=== PATIENT | female | born 1990 | race African-American/Black ===

== ENCOUNTER 2017-02-01 19:40 | Outpatient (CLI) | payer BC ==
[2017-02-01] MEDS ORDERED: LACTATED RINGERS 1,000 ML IV ONE (20:04)
[2017-02-01 20:31] LABS: Bilirubin,Urine NEG (Negative); Blood,Urine NEG (Negative); Ketones,Urine NEG (Negative); Leukocyte Esterase,Urine NEG (Negative); Nitrite,Urine NEG (Negative); Protein,Urine <15 mg/dL mg/dL (Negative); RBC,Urine < 1.0 /HPF (0.0-6.0); Urobilinogen,Urine < 2.0 mg/dL (<2.0); WBC,Urine < 1.0 /HPF (0.0-6.0)
== END 2017-02-01 21:14 | disposition home or self-care (01) ==
LOC: TRG 19:40
PROVIDERS: ATTEND Obstetrics & Gynecology
DX: O26.893 Other specified pregnancy related conditions, third trimester (principal); Z3A.33 33 weeks gestation of pregnancy
CPT/HCPCS: 59025; 81001; 96360; J7120

== ENCOUNTER 2017-02-24 11:55 | Outpatient (CLI) | payer BC ==
[2017-02-24 13:42] VITALS: BP 110/74
--- NOTE | 2017-02-24 15:25 | Ultrasound Report ---
BIOPHYSICAL PROFILE: well-being. 2 - breathing movements 2 - movements 2 - posture and tone 2 - Qualitative amniotic fluid volume 8 - TOTAL SCORE OF POSSIBLE 8 Heart Rate (bpm) 136 Estimated gestational age 37 weeks 0 days
--- NOTE | 2017-02-24 15:27 | Ultrasound Report ---
LIMITED OB ULTRASOUND: well-being. Gestation: Sharpe Position: Cephalic ASIM = 16.1 cm Heart Rate: 130 BPM Estimated gestational age 37 weeks.
== END 2017-02-24 14:45 | disposition home or self-care (01) ==
LOC: TRG 11:55
PROVIDERS: ATTEND Obstetrics & Gynecology
DX: O47.1 False labor at or after 37 completed weeks of gestation (principal); Z3A.37 37 weeks gestation of pregnancy
CPT/HCPCS: 59025; 76815; 76819

== ENCOUNTER 2017-03-08 22:14 | Outpatient (CLI) | payer BC ==
[2017-03-08 22:31] VITALS: BP 131/85
== END 2017-03-08 23:55 | disposition home or self-care (01) ==
LOC: TRG 22:14
PROVIDERS: ATTEND Obstetrics & Gynecology
DX: O47.1 False labor at or after 37 completed weeks of gestation (principal); Z3A.38 38 weeks gestation of pregnancy

== ENCOUNTER 2017-03-11 07:46 | Inpatient (IN) | payer BC ==
[2017-03-11] MEDS ORDERED: BRETHINE SUB-Q PRN (08:39)
[2017-03-11] MEDS ORDERED: XYLOCAINE 2% INFILTRATI ONE (08:39)
[2017-03-11] MEDS ORDERED: SUBLIMAZE IV PRN (08:39)
[2017-03-11] MEDS ORDERED: ePHEDrine SULFATE IV PRN (08:39)
--- NOTE | 2017-03-11 08:51 | History and Physical Report ---
History of Present Illness Date of examination: 03/11/17 Date of admission: 03/11/17 08:43 Chief complaint: Leaking of fluid from vagina since 02:00 today. Patient denies vaginal bleeding. Patient reports active movement. History of present illness: 26 year old presents to L&D with complaint of leaking of clear fluid from vagina since 02:00 this morning. Patient also reports irregular contractions. Patient denies VB. Patient states baby is moving well. Patient has received care at [facility]-MANAGER SKILL[facility] and had an elevated 1 hour sugar test but a normal 3 hour OGTT. Patient is GBS negative. Past History Past Medical History: other (right kidney malpositioned and abnormal; has seen specialist; right hydronephrosis) Past Surgical History: no surgical history MANAGER SKILLED History: denies: herpes Family/Genetic History: cancer (leukemia). denies: Down's syndrome, congenital heart defect, mental retardation Social history: , lives with family. denies: smoking, alcohol abuse, prescription drug abuse - Obstetrical History Expected Date of Delivery: 03/17/17 Actual Gestation: 39 Week(s) 1 Day(s) : 2 Para: 0 Hx # Term Pregnancies: 1 Number of Pregnancies: 0 Spontaneous Abortions: 1 Induced : 0 Number of Living Children: 0 Medications and Allergies Allergies Allergy/AdvReac Type Severity Reaction Status Date / Time No Known Allergies Allergy Unverified 02/01/17 20:04 Active Meds: Active Medications Ephedrine Sulfate (Ephedrine Sulfate) 10 mg IV Q2M PRN PRN Reason: Hypotension Stop: 03/11/17 08:44 Fentanyl (Sublimaze) 100 mcg IV Q2H PRN PRN Reason: Labor Pain Lactated Ringer's (Lactated Ringers) 1,000 mls @ 125 mls/hr IV DIRECT SNOG Lactated Ringer's (Lactated Ringers) 1,000 mls @ 125 mls/hr IV DIRECT SONG Oxytocin/Sodium Chloride (Pitocin/Ns 20 Unit/1000ml Drip) 20 units in 1,000 mls @ 125 mls/hr IV DIRECT SONG Lidocaine (Xylocaine 2%) 20 ml INFILTRATI ONCE ONE Stop: 03/11/17 08:40 Review of Systems All systems: negative (leaking of fluid from vagina and contractions) - Physical Exam Breasts: Positive: deferred Cardiovascular: Regular rate Lungs: Positive: Clear to auscultation Abdomen: Positive: normal appearance, soft. Negative: distention, tenderness, guarding, rigidity Genitourinary (Female): Positive: normal external genitalia. Negative: perineal /vulvar lesions Vulva: both: normal Vagina: Positive: other (Clear fluid seen; fern test positive) Uterus: Positive: enlarged. Negative: tender Anus/Rectum: Positive: normal perianal skin Extremities: Positive: normal. Negative: edema - Obstetrical FHR: category 1 Uterine Contraction Monitor Mode: External Cervical Dilatation: 2 Cervical Effacement Percentage: 80 station: -3 Uterine Contraction Pattern: Irregular Results All other labs normal. Assessment and Plan A: at 39 weeks, 1 day gestation. Spontaneous rupture of membranes. Early labor. GBS negative. P: Admit. Continuous EFM. Discussed with patient risks and benefits of Pitocin augmentation of labor. Patient consented to Pitocin augmentation of labor.
[2017-03-11] MEDS ORDERED: LACTATED RINGERS 1,000 ML IV SCH ×3 (09:00→17:00)
[2017-03-11] MEDS ORDERED: PITOCin/NS 20 UNIT/1000ML DRIP 20 UNITS/1,000 ML BAG IV SCH ×3 (09:00→21:00)
[2017-03-11] MEDS ORDERED: PITOCin/NS 30 UNIT/500ML 30 UNITS/500 ML BAG IV SCH (09:00)
[2017-03-11 11:51] LABS: Alanine Aminotransferase 18 units/L (7-56); Albumin 3.2 g/dL (3.9-5); Albumin/Globulin Ratio 0.9 %; Alkaline Phosphatase 169 units/L (35-129); Anion Gap 21 mmol/L; Blood Urea Nitrogen 9 mg/dL (7-17); Calcium 9.2 mg/dL (8.4-10.2); Carbon Dioxide 20 mmol/L (22-30); Chloride 98.7 mmol/L (98-107); Glucose 96 mg/dL (65-100); Potassium 4.1 mmol/L (3.6-5.0); Sodium 136 mmol/L (137-145); Total Protein 6.8 g/dL (6.3-8.2)
[2017-03-11 12:46] LABS: Basophils % (Auto) 0.3 % (0.0-1.8); Eosinophils % (Auto) 0.5 % (0.0-4.3); Hematocrit 38.4 % (30.3-42.9); Hemoglobin 12.9 gm/dl (10.1-14.3); Mean Corpuscular HGB Conc 34 % (30-34); Mean Corpuscular Hemoglobin 28 pg (28-32); Mean Corpuscular Volume 83 fl (79-97); Platelet Count 269 K/mm3 (140-440); Red Blood Count 4.61 M/mm3 (3.65-5.03); Red Cell Distribution Width 15.5 % (13.2-15.2); White Blood Count 11.9 K/mm3 (4.5-11.0)
--- NOTE | 2017-03-11 12:54 | Ultrasound Report ---
OB ULTRASOUND LIMITED: 03/11/17 CLINICAL: Estimated weight/size FINDINGS: Gestation: Sharpe Position: Cephalic. Amniotic Fluid: Normal ASIM = 7.8 cm Placenta: Posterior, no previa. Heart Rate: 143 BPM BPD 9.2 cm = 37 weeks, 2 days HC 34.6 cm = 40 weeks, 0 days A.C. 35.6 cm = 39 weeks, 4 days FL 7.5 cm = 38 weeks, 3 days HC/AC ratio = 0.97 Estimated weight = 3669 g IMPRESSION: Single live intrauterine fetus at 39 weeks, 1 daybased on clinical dating. Ultrasound gestational age = 38 weeks, 6 days. EDC based on clinical dating is 03/17/17 and EDC based on ultrasound dating is 03/19/17.
--- NOTE | 2017-03-11 14:02 | Event Note ---
Date: 03/11/[address] Olivia re: EFW, patient's height of 5 feet, mild elevation of maternal HR, mild elevation of WBC and neutrophil count. There is no fever, uterine tenderness, or foul smelling discharge. Spoke with patient and told her of these results and consult with Dr. Olivia. Advised patient that Dr. Olivia will be coming to talk to her about these things.
--- NOTE | 2017-03-11 16:14 | Event Note ---
Date: 03/11/17 SVE no change in cervical exam and narrow pelvis. Dr. Olivia coming to talk to patient.
[2017-03-11] MEDS ORDERED: ANCEF/STERILE WATER 2 GM/20 ML 2 GM/20 ML SYRINGE IV NR (17:00)
--- NOTE | 2017-03-11 17:04 | Anesthesia Consultation ---
Anesthesia Consult and Med Hx Date of service: 03/11/17 - Airway Anesthetic Teeth Evaluation: Good ROM Head & Neck: Adequate Mental/Hyoid Distance: Adequate Mallampati Class: Class II Intubation Access Assessment: Probably Good - Pulmonary Exam CTA: Yes - Cardiac Exam Cardiac Exam: RRR - Pre-Operative Health Status ASA Pre-Surgery Classification: ASA2 Proposed Anesthetic Plan: Epidural, Spinal - Pulmonary Hx Asthma: No - Cardiovascular System Hx Hypertension: No - Central Nervous System Hx Seizures: No Hx Psychiatric Problems: No - Endocrine Hx Renal Disease: Yes (right hydronephrosis) Hx Hypothyroidism: No Hx Hyperthyroidism: No - Hematic Hx Anemia: Yes Hx Sickle Cell Disease: No - Other Systems Hx Alcohol Use: No Hx Obesity: Yes - Additional Comments Anesthesia Medical History Comments: IUP
--- NOTE | 2017-03-11 17:05 | Anesthesia Day of Surgery ---
Anesthesia Day of Surgery - Day of Surgery Patient Examined: Yes Patient H&P Reviewed: Yes Patient is NPO: Yes
[2017-03-11] MEDS ORDERED: BENADRYL IV PRN (17:06)
[2017-03-11] MEDS ORDERED: NARCAN 0.4 MG/1 ML IV PRN ×2 (17:06→20:24)
[2017-03-11] MEDS ORDERED: ZOFRAN IV PRN (17:06)
[2017-03-11] MEDS ORDERED: TORADOL IV PRN (17:07)
[2017-03-11] MEDS ORDERED: MORPHINE IV PRN ×2 (17:07)
[2017-03-11] MEDS ORDERED: BICITRA PO ONE (18:00)
[2017-03-11] MEDS ORDERED: fentaNYL-BUPIV 2 MCG/ML-0.125% 100 ML EPIDURAL SCH (18:00)
[2017-03-11] MEDS ORDERED: SODIUM CHLORIDE FLUSH SYRINGE 10 ML IV NR (18:00)
[2017-03-11] MEDS ORDERED: REGLAN IV ONE (18:00)
[2017-03-11] MEDS ORDERED: PEPCID IV ONE (18:00)
[2017-03-11] MEDS ORDERED: MORPHINE ONE (19:26)
[2017-03-11] MEDS ORDERED: NACL 0.9% IR ONE (19:30)
[2017-03-11] MEDS ORDERED: WATER FOR IRRIG STERILE IR ONE (19:30)
[2017-03-11] MEDS ORDERED: NEO SYNEPHRINE/NS Syringe(OR USE) IV ONE (20:00)
[2017-03-11] MEDS ORDERED: MOTRIN PO PRN (20:24)
[2017-03-11] MEDS ORDERED: TUCKS PAD TP PRN (20:24)
[2017-03-11] MEDS ORDERED: MILK OF MAGNESIA PO PRN (20:24)
[2017-03-11] MEDS ORDERED: TYLENOL PO PRN (20:24)
[2017-03-11] MEDS ORDERED: NORCO 5/325 PO PRN (20:24)
[2017-03-11] MEDS ORDERED: LANSINOH TP PRN (20:24)
[2017-03-11] MEDS ORDERED: PHENERGAN PR PRN (20:24)
[2017-03-11] MEDS ORDERED: SENOKOT PO PRN (20:24)
--- NOTE | 2017-03-11 20:41 | Operative Report ---
Operative Report Operative Report: Date of procedure: 03/11/2017 Pre-operative diagnosis: 1. Intrauterine at 39-1/7 weeks. 2. Failure to progress 3. Contracted pelvis Post-operative diagnosis: Same Procedure name(s): Primary low transverse section Surgeon: Kristian Olivia MD Waiter/Waitress Tavern: None Anesthesia: Spinal anesthesia by Dr. Gasca EBL: 500 mL's Findings: A 3796 g male infant Apgars 9 at 1 minute and 9 at 5 minutes. Clear amniotic fluid. Normal uterus. Normal tubes and ovaries bilaterally. Prominent sacral promontory. Procedure: After the patient was prepped and draped in usual sterile fashion, and after satisfactory level of epidural anesthesia was obtained, the skin knife was used to make a transverse skin incision. The incision was excised down to layer of the fascia, which was nicked in the midline and extended laterally using the Bovie cautery. The rectus muscles were dissected off the rectus fascia both superiorly and inferiorly. The rectus bellies in the midline, and the peritoneum was entered under direct visualization. The peritoneal incision was extended superiorly and inferiorly. A bladder flap was created and the bladder blade was then placed. The uterus was scored in a curvilinear linear fashion, entered in the midline revealing clear amniotic fluid. The 's head was delivered onto the surgical field, and the oropharynx and nasopharynx were bulb suctioned. The rest of the infant's body was delivered, cord was doubly clamped and cut and the infant was handed to the waiting respiratory team. The placenta was manually removed from the uterus, and the uterus removed from its normal anatomical position. After gentle uterine lavage, the incision was inspected and found to be without extensions. It was then closed in 2 layers using 0 Vicryl suture in a running interlocking fashion, the second layer imbricating the first. After good hemostasis was achieved, copious amounts or irrigation was performed, and the gutters were suctioned free of blood and blood clots. The sacral promontory was found to be prominent. Tisseel sealant was sprayed across the uterine incision. The uterus was then returned to its normal anatomical position, and after excellent hemostasis assured, the peritoneum was re-approximated using 3-0 Vicryl suture in a running interlocking fashion, and then the rectus muscles were re- approximated using 3-0 Vicryl suture in a [id number] configuration. The fascia was then re-approximated using 0 Vicryl suture in running interlocking fashion. The subcutaneous layer was made hemostatic using Bovie cautery, the Tisseel sealant was sprayed across the fascial incision and the skin edges re- approximated using 4-0 Vicryl suture in a sub-cuticular fashion. Patient tolerated the procedure well was transported to recovery in stable condition.
[2017-03-11] MEDS ORDERED: DEMEROL ONE (20:45)
[2017-03-11] MEDS ORDERED: D5LR 1,000 ML IV SCH (21:00)
[2017-03-11] MEDS ORDERED: SODIUM CHLORIDE FLUSH SYRINGE 10 ML IV PRN (21:00)
[2017-03-12] MEDS: ANCEF/NS 1 GM/50 ML 1 GM/50 ML BAG IV SCH ×2 (02:30→10:42)
[2017-03-12 08:34] LABS: Hematocrit 35.6 % (30.3-42.9); Hemoglobin 11.8 gm/dl (10.1-14.3)
[2017-03-12] MEDS ORDERED: PRENATAL VITAMIN PO SCH (10:00)
[2017-03-12] MEDS ORDERED: FEOSOL PO SCH (10:00)
--- NOTE | 2017-03-12 12:10 | Progress Note ---
Assessment and Plan A: day 1 S/P primary low transverse section. P: Remove Noe catheter. Encouraged patient to ambulate. Advance diet as tolerated. Subjective - Subjective Date of service: 03/12/17 Principal diagnosis: day 1 S/P primary section Interval history: day 1 S/P primary section delivery of liveborn male on 03/11/17. Patient is doing well. She reports small amount of lochia. Noe catheter still in place and draining well. Patient states she has not ambulated yet this morning. She has not passed gas yet. Patient denies headache, cough, shortness of breath, chest pain, abdominal pain, nausea or vomiting, leg pain, heavy vaginal bleeding, clots, or symptoms of depression. Patient reports: appetite normal, pain well controlled, no flatus : doing well Objective - Vital Signs Latest vital signs: Vital Signs Temp Pulse Resp BP BP Pulse Ox 03/12/17 10:55 20 03/12/17 09:18 98.0 F 16 106/63 03/12/17 04:05 98.2 F 114 H 18 110/60 03/11/17 22:00 98.4 F 87 18 108/62 03/11/17 21:30 97.8 F 88 16 110/60 97 03/11/17 21:20 85 15 121/61 97 03/11/17 21:15 89 15 113/62 97 03/11/17 21:10 94 H 16 105/66 97 03/11/17 21:00 89 16 115/64 96 03/11/17 20:50 89 19 118/56 98 03/11/17 20:46 92 H 13 101/58 98 03/11/17 20:40 97 H 21 99/54 99 03/11/17 20:34 98.0 F 98 H 20 86/49 98 03/11/17 20:32 20 03/11/17 18:41 99 H 99 03/11/17 18:36 92 H 131/75 99 03/11/17 17:32 101 H 129/70 03/11/17 17:14 108 H 98 03/11/17 17:09 106 H 98 03/11/17 17:04 104 H 98 03/11/17 17:02 103 H 126/83 03/11/17 16:58 104 H 97 03/11/17 16:53 105 H 98 03/11/17 16:48 85 97 03/11/17 16:43 94 H 96 03/11/17 16:38 98 H 96 03/11/17 16:33 103 H 97 03/11/17 16:31 88 115/65 03/11/17 16:28 91 H 97 03/11/17 16:23 80 98 03/11/17 16:18 83 98 03/11/17 16:13 99 H 98 03/11/17 16:08 99 H 98 03/11/17 16:07 101 H 120/87 03/11/17 16:03 96 H 98 03/11/17 15:58 93 H 98 03/11/17 15:53 99 H 95 03/11/17 15:31 92 H 106/65 95 03/11/17 15:27 91 H 92 03/11/17 15:26 89 94 03/11/17 15:21 91 H 93 03/11/17 15:16 90 94 03/11/17 15:11 87 94 03/11/17 15:10 98.1 F 75 16 128/67 98 03/11/17 15:06 81 94 03/11/17 15:04 78 94 03/11/17 15:01 109 H 126/76 96 03/11/17 14:57 95 H 130/76 03/11/17 14:56 94 H 95 03/11/17 14:51 88 94 03/11/17 14:49 85 94 03/11/17 14:46 90 95 03/11/17 14:16 97 H 97 03/11/17 14:11 86 98 03/11/17 14:06 98 H 98 03/11/17 14:01 89 123/77 99 03/11/17 13:56 82 98 03/11/17 13:51 80 98 03/11/17 13:46 73 99 03/11/17 13:41 78 99 03/11/17 13:36 105 H 97 03/11/17 13:31 79 128/67 98 03/11/17 13:26 86 97 03/11/17 13:21 89 97 03/11/17 13:16 80 97 03/11/17 13:11 86 97 03/11/17 12:55 86 97 09/30/17 12:50 92 H 98 03/11/17 12:45 85 98 03/11/17 12:40 91 H 98 03/11/17 12:35 94 H 97 03/11/17 12:31 90 128/78 03/11/17 12:30 91 H 98 03/11/17 12:25 86 99 03/11/17 12:20 99 H 97 03/11/17 12:15 94 H 97 03/11/17 12:10 100 H 96 Intake and Output 03/11/17 03/12/17 03/12/17 22:59 06:59 14:59 Intake Total 872.8 170 Output Total 350 400 Balance 522.8 -230 Intake: IV 872.8 50 ANCEF/NS 1 GM/50 ML 1 gm 50 In 50 ml @ 100 mls/hr IV Q8H SONG Rx#:[id number] PITOCin/NS 30 UNIT/500ML 22.8 30 units In 500 ml @ Per Protocol IV TITR SONG Rx#: [id number] Oral 120 Output: Urine 350 400 Uretheral (Noe) 100 Void 400 Other: Total, Intake Amount 120 Total, Output Amount 400 Estimated Blood Loss 500 - Exam Breasts: Present: deferred Cardiovascular: Present: Regular rate, No murmurs Lungs: Present: Clear to auscultation Abdomen: Present: normal appearance, soft, normal bowel sounds (hypoactive). Absent: distention, tenderness, guarding, rigidity Uterus: Present: normal, firm, fundal height below umbilicus Extremities: Present: normal. Absent: edema Incision: Present: normal, dry, dressed - Labs Labs: Abnormal lab results 03/11/17 Range/Units 12:14 WBC 11.9 H (4.5-11.0) K/mm3 RDW 15.5 H (13.2-15.2) % Seg Neutrophils % 77.3 H (40.0-70.0) % Seg Neutrophils # 9.2 H (1.8-7.7) K/mm3
[2017-03-12] MEDS: PERCOCET 5/325 PO PRN ×2 (14:30→20:28)
[2017-03-12] MEDS ORDERED: M-M-R II VACCINE SUB-Q ONE (20:27)
[2017-03-12] MEDS: MYLICON PO PRN (20:28)
[2017-03-13] MEDS ORDERED: BOOSTRIX IM ONE (06:00)
[2017-03-13] MEDS: PERCOCET 5/325 PO PRN ×3 (08:03→21:06)
--- NOTE | 2017-03-13 10:18 | Progress Note ---
Assessment and Plan A: POD #2 Stable P: Follow Routine PostOp Orders D/C home in the AM RTO in One Week Subjective - Subjective Date of service: 03/13/17 Principal diagnosis: day 1 S/P primary section Patient reports: appetite normal, voiding normally, pain well controlled, flatus , ambulating normally : doing well, bottle feeding Objective - Vital Signs Latest vital signs: Vital Signs Temp Pulse Resp BP BP Pulse Ox 03/13/17 08:21 98.2 F 100 H 18 113/71 97 03/13/17 00:00 98.2 F 100 H 18 109/66 03/12/17 16:00 98.7 F 99 H 16 107/67 03/12/17 14:30 20 03/12/17 11:44 98.1 F 18 106/66 03/12/17 10:55 20 Intake and Output 03/12/17 03/13/17 03/13/17 22:59 06:59 14:59 Intake Total 120 120 Output Total 500 400 Balance -380 -280 Intake: Oral 120 120 Output: Urine 500 400 Void 500 400 Other: Total, Intake Amount 120 120 Total, Output Amount 500 400 # Voids Void 1 - Exam Breasts: Present: normal Cardiovascular: Present: Regular rate Lungs: Present: Clear to auscultation, Normal air movement Abdomen: Present: normal appearance, soft, normal bowel sounds Uterus: Present: normal, firm, fundal height below umbilicus Extremities: Present: normal Incision: Present: normal, dry, intact
--- NOTE | 2017-03-13 10:20 | Discharge Summary ---
Providers - Providers Date of Admission: 03/11/17 08:43 Date of discharge: 03/14/17 Attending physician: ZAHRA WEN MD Primary care physician: ZAHRA WEN MD Hospitalization Reason for admission: rupture of membranes Delivery: Procedure: primary low transverse Episiotomy: none Laceration: none Incision: normal, dry, intact Other procedures: none complications: none Discharge diagnosis: IUP at term delivered [place] baby: male Condition at discharge: Good Disposition: DC-01 TO HOME OR SELFCARE Plan - Discharge Medications Prescriptions: Ferrous Sulfate [Feosol 325 MG tab] 325 mg PO BID #60 tablet HYDROcodone/APAP 5-325 [[place] 5/325] 1 each PO Q6HR PRN #30 tablet PRN Reason: Pain Ibuprofen [Motrin] 800 mg PO Q8HR PRN #30 tablet PRN Reason: Moder Pain Unrelieved By [place] Vit W-Ca,Fe,FA(<1 mg) [ Vitamins] 1 each PO DAILY #30 tablet - Provider Discharge Summary Activity: routine, no sex for 6 weeks, no heavy lifting 4 weeks, no strenuous exercise Diet: routine Instructions: routine Additional instructions: [] Smoking cessation referral if applicable(refer to patient education folder for contact #) [] Refer to [facility]'s [facility] Booklet Call your doctor immediately for: * Fever > 100.5 * Heavy vaginal bleeding ( >1 pad per hour) * Severe persistent headache * Shortness of breath * Reddened, hot, painful area to leg or breast * Drainage or odor from incision. * Keep incision clean and dry at all times and follow doctor's instructions regarding bathing/showering - Follow up plan Follow up: ZAHRA WEN MD [Primary Care Provider] - 7 Days
[2017-03-13] MEDS: MYLICON PO PRN (16:20)
[2017-03-14] MEDS: PERCOCET 5/325 PO PRN (08:30)
[2017-03-14 10:33] VITALS: BP 120/72
== END 2017-03-14 13:00 | disposition home or self-care (01) | DRG 765 ==
LOC: TRG 07:46 → LD 08:43 → OB 22:17
PROVIDERS: ADMIT Obstetrics & Gynecology; ATTEND Obstetrics & Gynecology
PROC: 10D00Z1 Extraction of Products of Conception, Low, Open Approach (ICD-10-PCS; principal; 2017-03-11)
PROC: 3E0234Z Introduction of Serum, Toxoid and Vaccine into Muscle, Percutaneous Approach (ICD-10-PCS; 2017-03-12)
DX: O99.214 Obesity complicating childbirth (principal); N13.30 Unspecified hydronephrosis; O62.2 Other uterine inertia; O65.1 Obstructed labor due to generally contracted pelvis; E66.9 Obesity, unspecified; Z3A.39 39 weeks gestation of pregnancy; Z37.0 Single live birth; Z80.6 Family history of leukemia; Z68.34 Body mass index [BMI] 34.0-34.9, adult; Z23 Encounter for immunization; O99.89 Other specified diseases and conditions complicating pregnancy, childbirth and the puerperium
CPT/HCPCS: 36415; 76816; 80053; 85014; 85018; 85025; 86592; 86850; 86900; 86901; 99211; A6250; C9250; G0463; J0690; J1885; J2175; J2270; J2370; J2405; J2590; J2765; J3010; J7120; J7121